=== PATIENT | male | born 1985 | race Caucasian/White ===

== ENCOUNTER 2021-01-26 19:05 | Emergency (ER) | payer OTHER ==
[~2021-01-26] VITALS: Ht 175.3 cm; Wt 117.9 kg
[2021-01-26] MEDS ORDERED: GLUMETZA500 MG (19:10)
== END 2021-01-26 22:05 | disposition home or self-care (01) ==
LOC: ER 19:05
DX: K61.0 Anal abscess (principal)

== ENCOUNTER 2022-01-23 06:00 | Day surgery (SDC) | payer OTHER ==
[~2022-01-23] VITALS: Ht 185.4 cm; Wt 136.1 kg
[~2022-01-23 06:00] MED LIST: GLUMETZA1000 MG; GLUMETZA500 MG; MOUNJARO2.5 MG/0.5 SQ
[2022-01-23] MEDS ORDERED: PERCOCET 5-3251 EACH PO (11:29)
[2022-01-23] MEDS ORDERED: RECTICARE30 GM TOP (11:30)
== END 2022-01-23 13:00 | disposition home or self-care (01) ==
LOC: CIR.AMB 06:00
PROVIDERS: ATTEND Surgery
DX: K60.3 Anal fistula (principal); Z20.822 Contact with and (suspected) exposure to COVID-19; I10 Essential (primary) hypertension; J45.909 Unspecified asthma, uncomplicated; E11.9 Type 2 diabetes mellitus without complications; Z79.84 Long term (current) use of oral hypoglycemic drugs

== ENCOUNTER 2022-03-12 06:50 | Emergency (ER) | payer OTHER ==
[~2022-03-12] VITALS: Ht 185.4 cm; Wt 135.6 kg
[~2022-03-12 06:50] MED LIST changes: +PERCOCET 5-3251 EACH PO; +RECTICARE30 GM TOP
[2022-03-12] MEDS ORDERED: COZAAR25 MG (07:27)
[2022-03-12] MEDS ORDERED: TOUJEO MAX300 UNIT/1 (07:29)
[2022-03-12] MEDS ORDERED: TAMS0.4C PO (16:18)
[2022-03-12] MEDS ORDERED: KETO10TA2 PO (16:18)
== END 2022-03-12 16:29 | disposition home or self-care (01) ==
LOC: ER 06:50
DX: R10.84 Generalized abdominal pain (principal); I10 Essential (primary) hypertension; E11.9 Type 2 diabetes mellitus without complications; Z79.4 Long term (current) use of insulin; N13.2 Hydronephrosis with renal and ureteral calculous obstruction; K57.90 Diverticulosis of intestine, part unspecified, without perforation or abscess without bleeding

== ENCOUNTER 2022-05-05 05:46 | Day surgery (SDC) | payer OTHER ==
[~2022-05-05] VITALS: Ht 185.4 cm; Wt 136.1 kg
[~2022-05-05 05:46] MED LIST changes: +COZAAR25 MG PO; +DICY20TA PO; +INTESTINEX680 M1 PO; +KETO10TA2 PO; +PROTONIX40 MG PO; +TAMS0.4C PO; +TOUJEO MAX300 UNIT/1
[2022-05-05] MEDS ORDERED: PERCOCET 5-3251 EACH PO (08:54)
[2022-05-05] MEDS ORDERED: RECTICARE30 GM TOP (08:54)
== END 2022-05-05 12:55 | disposition home or self-care (01) ==
LOC: CIR.AMB 05:46
PROVIDERS: ATTEND Surgery
DX: K60.3 Anal fistula (principal); K62.89 Other specified diseases of anus and rectum; Z91.018 Allergy to other foods; E11.9 Type 2 diabetes mellitus without complications; Z79.84 Long term (current) use of oral hypoglycemic drugs; E66.09 Other obesity due to excess calories; Z20.822 Contact with and (suspected) exposure to COVID-19

== ENCOUNTER 2022-06-17 16:47 | Outpatient (CLI) | payer OTHER | END 2022-06-17 16:48 | disposition home or self-care (01) | LOC: LAB 16:47 | PROVIDERS: ATTEND Obstetrics & Gynecology | DX: Z20.828 Contact with and (suspected) exposure to other viral communicable diseases (principal); Z20.818 Contact with and (suspected) exposure to other bacterial communicable diseases ==

== ENCOUNTER 2022-06-23 22:12 | Emergency (ER) | payer OTHER ==
[~2022-06-23] VITALS: Ht 185.4 cm; Wt 136.1 kg
[2022-06-23] MEDS ORDERED: TOUJEO MAX300 UNIT/1 SUBCUTANEO (22:33)
== END 2022-06-24 06:27 | disposition home or self-care (01) ==
LOC: ER 22:12
DX: R10.32 Left lower quadrant pain (principal); N13.2 Hydronephrosis with renal and ureteral calculous obstruction; K57.30 Diverticulosis of large intestine without perforation or abscess without bleeding; Z91.018 Allergy to other foods